=== PATIENT | male | born 1955 | race African-American/Black ===

== ENCOUNTER 2023-09-21 16:09 | Outpatient (AMB) | payer MEDICARE, MEDICAID, SELFPAY ==
--- NOTE | 2023-09-21 16:11 | HO.NEPHOV_ITS ---
HPI HPI Comments History of Present Illness Details 67-year-old man with a history of hypert ension and CKD he is here for follow-up. He has history of mild hypercalcemia which has resolved. Today he has no new complaints. No polyuria polydipsia. No urinary symptoms PFSH Social History (Updated 09/21/23 @ 16:15 by Carrie Newton) Alcohol intake: never Patient Tobacco Use Status: Never used Tobacco Vital Signs 09/21/23 16:13 Height 5 ft 8 in Weight 172 lb BMI 26.1 BP 120/70 Blood Pressure Location Lt brachial Position Sitting Pulse 82 Pulse Source Pulse Oximeter Pulse Oximetry (%) 92 Oxygen Delivery Method Room Air Physical Exam Vital Signs: Last Vital Signs Pulse 82 09/21/23 16:13 BP 120/70 09/21/23 16:13 Pulse Ox 92 09/21/23 16:13 Oxygen Delivery Method Room Air 09/21/23 16:13 BMI result Body Mass Index 26.1 Const General: comfortable; No acute distress Orientation/consciousness: patient oriented x3 Eyes General: appearance normal, both eyes and all related structures Visual Chino: normal visual chino by confrontation Neck Neck: Yes supple and Yes no JVD Resp Effort & Inspection: normal respiratory effort and respiratory effort not decreased Auscultation: rhonchi Cardio Palpation: no palpable S3 and no palpable S4 Heart sounds: no rubs GI Inspection: Yes normal to inspection Palpation (GI): Soft to palpation Percussion: Yes normal to percussion Auscultation: normal bowel sounds General: Yes no CVA tenderness Back/Spine/Pelvis Back: no CVA tenderness Skin General skin exam: no petechiae and no purpura Neuro General: patient oriented x3 and no focal motor deficits Extrem General: No clubbing and No edema Results Reviewed Results Reviewed: Labs from February 2023 was reviewed. Serum creatinine 1.4. Assessment & Plan Assessment & Plan (1) CKD (chronic kidney disease) stage 3, GFR 30-59 ml/min: Code(s): N18.30 - Chronic kidney disease, stage 3 unspecified Plan: Renal function at baseline Will repeat Avoid nephrotoxins (2) HTN (hypertension): Code(s): I10 - Essential (primary) hypertension Plan: BP acceptable Low salt diet (3) Hypercalcemia: Code(s): E83.52 - Hypercalcemia Plan: recheck today Orders: Orders Electrolytes Today N18.30 - Chronic kidney disease, stage 3 unspecified Blood Urea Nitrogen Today N18.30 - Chronic kidney disease, stage 3 unspecified Creatinine Today N18.30 - Chronic kidney disease, stage 3 unspecified Calcium Today N18.30 - Chronic kidney disease, stage 3 unspecified Coding Level of Care Code Est Pt Level 3 (95632) Diagnoses CKD (chronic kidney disease) stage 3, GFR 30-59 ml/min N18.30 HTN (hypertension) I10 Hypercalcemia E83.52
[2023-09-21 16:13] VITALS: BP 120/70; PULSE 82; O2SAT 92; BMI 26.1
== END 2023-09-21 16:26 | disposition home or self-care (01) ==
PROVIDERS: Visit Provider Internal Medicine Hypertension Specialist
DX: I12.9 Hypertensive chronic kidney disease with stage 1 through stage 4 chronic kidney disease, or unspecified chronic kidney disease (principal); N18.30 Chronic kidney disease, stage 3 unspecified; E83.52 Hypercalcemia
CPT/HCPCS: 99213

== ENCOUNTER → 2023-09-21 16:09 | Outpatient (BNVA) | payer MEDICARE, MEDICAID, SELFPAY | PROVIDERS: Visit Provider Internal Medicine Hypertension Specialist | DX: I12.9 Hypertensive chronic kidney disease with stage 1 through stage 4 chronic kidney disease, or unspecified chronic kidney disease (principal); N18.30 Chronic kidney disease, stage 3 unspecified; E83.52 Hypercalcemia | CPT/HCPCS: 99212 ==

== ENCOUNTER 2024-03-21 10:51 | Outpatient (AMB) | payer MEDICARE, MEDICAID, SELFPAY ==
[2024-03-21 10:55] VITALS: BP 128/70; PULSE 84; O2SAT 95; BMI 25.5
--- NOTE | 2024-03-21 10:55 | HO.NEPHOV ---
Vital Signs 03/21/24 10:55 Height 5 ft 8 in Weight 168 lb BMI 25.5 BP 128/70 Blood Pressure Location Lt brachial Position Sitting Pulse 84 Pulse Source Pulse Oximeter Pulse Oximetry (%) 95 Oxygen Delivery Method Room Air Intake Visit Reasons: 6M follow up/ LVM An/Sqq 89(V)15 Sonar System Journeyman Required: No Accompanied by: Self / Same As Patient Allergies No Known Allergies Allergy (Verified 03/21/24 10:56) Medication List - Last Reconciled 03/21/24 by Garret Cantu MD amlodipine 10 mg PO DAILY atorvastatin 40 mg PO DAILY lamotrigine 200 mg PO BID tamsulosin 0.4 mg PO DAILY HPI Comments Details: 67-year-old man with a history of hypertension and CKD he is here for follow-up. He has history of mild hypercalcemia which has resolved. Today he has no new complaints. No polyuria polydipsia. No urinary symptoms PFSH Social History Alcohol intake: never Patient Tobacco Use Status: Never used Tobacco Physical Exam Vital Signs: Last Vital Signs Pulse 84 03/21/24 10:55 BP 128/70 03/21/24 10:55 Pulse Ox 95 03/21/24 10:55 Oxygen Delivery Method Room Air 03/21/24 10:55 BMI result Body Mass Index 25.5 Const General: comfortable; No acute distress Orientation/consciousness: patient oriented x3 Eyes General: appearance normal, both eyes and all related structures Visual Chino: normal visual chino by confrontation Neck Neck: Yes supple and Yes no JVD Resp Effort & Inspection: normal respiratory effort and respiratory effort not decreased Auscultation: rhonchi Cardio Palpation: no palpable S3 and no palpable S4 Heart sounds: no rubs GI Inspection: Yes normal to inspection Palpation (GI): Soft to palpation Percussion: Yes normal to percussion Auscultation: normal bowel sounds General: Yes no CVA tenderness Back/Spine/Pelvis Back: no CVA tenderness Skin General skin exam: no petechiae and no purpura Neuro General: patient oriented x3 and no focal motor deficits Extrem General: No clubbing and No edema Results Reviewed Results Reviewed: Pending Nephrology Results: No Data to Display Assessment & Plan Assessment & Plan (1) CKD (chronic kidney disease) stage 3, GFR 30-59 ml/min: Code(s): N18.30 - Chronic kidney disease, stage 3 unspecified Category: Medical Plan: Renal function at baseline Cr 1.37 Avoid nephrotoxins (2) HTN (hypertension): Code(s): I10 - Essential (primary) hypertension Category: Medical Plan: BP acceptable Low salt diet (3) Hypercalcemia: Code(s): E83.52 - Hypercalcemia Category: Medical Plan: Delroy 10.0 Vit D 28 Orders: Orders Complete Blood Count Auto Diff 6 Months I10 - Essential (primary) hypertension, N18.30 - Chronic kidney disease, stage 3 unspecified Comprehensive Met. Panel 6 Months I10 - Essential (primary) hypertension, N18.30 - Chronic kidney disease, stage 3 unspecified, N18.9 - Chronic kidney disease, unspecified Parathyroid Hormone Intact 6 Months I10 - Essential (primary) hypertension, N18.30 - Chronic kidney disease, stage 3 unspecified UA and rflx microscopic 6 Months I10 - Essential (primary) hypertension, N18.30 - Chronic kidney disease, stage 3 unspecified Coding Level of Care Code Est Pt Level 4 (94530) Diagnoses CKD (chronic kidney disease) stage 3, GFR 30-59 ml/min N18.30 HTN (hypertension) I10 Hypercalcemia E83.52
== END 2024-03-21 11:10 | disposition home or self-care (01) ==
PROVIDERS: PCP Nurse Practitioner Family; Visit Provider Internal Medicine Hypertension Specialist
DX: N18.30 Chronic kidney disease, stage 3 unspecified (principal); I10 Essential (primary) hypertension; E83.52 Hypercalcemia
CPT/HCPCS: 99214

== ENCOUNTER → 2024-03-21 10:51 | Outpatient (BNVA) | payer MEDICAID, SELFPAY | PROVIDERS: Visit Provider Internal Medicine Hypertension Specialist | DX: I12.9 Hypertensive chronic kidney disease with stage 1 through stage 4 chronic kidney disease, or unspecified chronic kidney disease (principal); N18.30 Chronic kidney disease, stage 3 unspecified; E83.52 Hypercalcemia | CPT/HCPCS: 99212 ==

== ENCOUNTER 2024-08-15 11:09 | Outpatient (AMB) | payer MEDICARE, MEDICAID, SELFPAY ==
--- NOTE | 2024-08-15 11:11 | HO.NEPHOV ---
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 He has history of mild hypercalcemia which has resolved. Today he has no new complaints. No polyuria polydipsia. No urinary symptoms PFSH Social History Alcohol intake: never Patient Tobacco Use Status: Never used Tobacco Physical Exam Vital Signs: Last Vital Signs Pulse 95 08/15/24 11:12 BP 110/64 08/15/24 11:12 Pulse Ox 96 08/15/24 11:12 Oxygen Delivery Method Room Air 08/15/24 11:12 BMI result Body Mass Index 25.1 Const General: comfortable; No acute distress Orientation/consciousness: patient oriented x3 Eyes General: appearance normal, both eyes and all related structures Visual Chino: normal visual chino by confrontation Neck Neck: Yes supple and Yes no JVD Resp Effort & Inspection: normal respiratory effort and respiratory effort not decreased Auscultation: rhonchi Cardio Palpation: no palpable S3 and no palpable S4 Heart sounds: no rubs GI Inspection: Yes normal to inspection Palpation (GI): Soft to palpation Percussion: Yes normal to percussion Auscultation: normal bowel sounds General: Yes no CVA tenderness Back/Spine/Pelvis Back: no CVA tenderness Skin General skin exam: no petechiae and no purpura Neuro General: patient oriented x3 and no focal motor deficits Extrem General: No clubbing and No edema Results Reviewed Nephrology Results: No Data to Display Assessment & Plan Assessment & Plan (1) CKD (chronic kidney disease) stage 3, GFR 30-59 ml/min: Code(s): N18.30 - Chronic kidney disease, stage 3 unspecified Category: Medical Plan: Renal function at baseline Cr 1.37 Avoid nephrotoxins (2) HTN (hypertension): Code(s): I10 - Essential (primary) hypertension Category: Medical Plan: BP acceptable Low salt diet (3) Hypercalcemia: Code(s): E83.52 - Hypercalcemia Category: Medical Plan: Delroy 10.0 Vit D 28 Orders: Orders Complete Blood Count Auto Diff Today E83.52 - Hypercalcemia, I10 - Essential (primary) hypertension, N18.30 - Chronic kidney disease, stage 3 unspecified Total Protein Urine Random Today E83.52 - Hypercalcemia, I10 - Essential (primary) hypertension, N18.30 - Chronic kidney disease, stage 3 unspecified UA and rflx microscopic Today E83.52 - Hypercalcemia, I10 - Essential (primary) hypertension, N18.30 - Chronic kidney disease, stage 3 unspecified Creatinine Urine Today E83.52 - Hypercalcemia, I10 - Essential (primary) hypertension, N18.30 - Chronic kidney disease, stage 3 unspecified Parathyroid Hormone Intact Today N18.30 - Chronic kidney disease, stage 3 unspecified Basic Metabolic Panel Today E83.52 - Hypercalcemia, I10 - Essential (primary) hypertension, N18.30 - Chronic kidney disease, stage 3 unspecified Coding Level of Care Code Est Pt Level 4 (63075) Diagnoses CKD (chronic kidney disease) stage 3, GFR 30-59 ml/min N18.30 HTN (hypertension) I10 Hypercalcemia E83.52
[2024-08-15 11:12] VITALS: BP 110/64; PULSE 95; O2SAT 96; BMI 25.1
== END 2024-08-15 11:24 | disposition home or self-care (01) ==
PROVIDERS: PCP Nurse Practitioner Family; Visit Provider Internal Medicine Hypertension Specialist
DX: N18.30 Chronic kidney disease, stage 3 unspecified (principal); I10 Essential (primary) hypertension; E83.52 Hypercalcemia
CPT/HCPCS: 99214

== ENCOUNTER → 2024-08-15 11:09 | Outpatient (BNVA) | payer MEDICAID, SELFPAY | PROVIDERS: PCP Nurse Practitioner Family; Visit Provider Internal Medicine Hypertension Specialist | DX: I12.9 Hypertensive chronic kidney disease with stage 1 through stage 4 chronic kidney disease, or unspecified chronic kidney disease (principal); N18.30 Chronic kidney disease, stage 3 unspecified; E83.52 Hypercalcemia | CPT/HCPCS: 99212 ==

== ENCOUNTER 2025-02-13 09:57 | Outpatient (AMB) | payer MEDICAID, SELFPAY ==
[2025-02-13 09:57] VITALS: BP 110/70; PULSE 111; O2SAT 97; BMI 25.0
--- NOTE | 2025-02-13 09:57 | HO.NEPHOV ---
Vital Signs 02/13/25 09:57 Height 5 ft 8 in Weight 164 lb 6 oz BMI 25.0 BP 110/70 Blood Pressure Location Lt brachial Position Sitting Pulse 111 H Pulse Source Pulse Oximeter Pulse Oximetry (%) 97 Oxygen Delivery Method Room Air Intake Visit Reasons: 6mon follow up/ LVM Allergies No Known Allergies Allergy (Verified 02/13/25 09:59) Medication List - Last Reconciled 02/13/25 by Garret Cantu MD amlodipine 10 mg PO DAILY atorvastatin 40 mg PO DAILY lamotrigine 200 mg PO BID tamsulosin 0.4 mg PO DAILY HPI Comments Details: 69-year-old man with a history of hypertension and CKD he is here for follow-up. He has history of mild hypercalcemia which has resolved. Today he has no new complaints. No polyuria polydipsia. No urinary symptoms PFSH Social History Alcohol intake: never Patient Tobacco Use Status: Never used Tobacco Physical Exam Vital Signs: Last Vital Signs Pulse 111 H 02/13/25 09:57 BP 110/70 02/13/25 09:57 Pulse Ox 97 02/13/25 09:57 Oxygen Delivery Method Room Air 02/13/25 09:57 BMI result Body Mass Index 25.0 Const General: comfortable; No acute distress Orientation/consciousness: patient oriented x3 Eyes General: appearance normal, both eyes and all related structures Visual Chino: normal visual chino by confrontation Neck Neck: Yes supple and Yes no JVD Resp Effort & Inspection: normal respiratory effort and respiratory effort not decreased Cardio Palpation: no palpable S3 and no palpable S4 Heart sounds: no rubs GI Inspection: Yes normal to inspection Palpation (GI): Soft to palpation Percussion: Yes normal to percussion Auscultation: normal bowel sounds General: Yes no CVA tenderness Back/Spine/Pelvis Back: no CVA tenderness Skin General skin exam: no petechiae and no purpura Neuro General: patient oriented x3 and no focal motor deficits Extrem General: No clubbing and No edema Results Reviewed Results Reviewed: 02/07/25 Cr No proteinuria Nephrology Results: No Data to Display Assessment & Plan Assessment & Plan (1) CKD (chronic kidney disease) stage 3, GFR 30-59 ml/min: Code(s): N18.30 - Chronic kidney disease, stage 3 unspecified Category: Medical Plan: Renal function at baseline Cr 1.4 Avoid nephrotoxins (2) HTN (hypertension): Code(s): I10 - Essential (primary) hypertension Category: Medical Plan: BP acceptable Low salt diet (3) Hypercalcemia: Code(s): E83.52 - Hypercalcemia Category: Medical Plan: Delroy 10.0 Vit D 28 Repeat Ca 10.1 with PTH of 68pg/ml Orders: Orders Basic Metabolic Panel 6 Months N18.30 - Chronic kidney disease, stage 3 unspecified Coding Level of Care Code Est Pt Level 4 (92435) Diagnoses CKD (chronic kidney disease) stage 3, GFR 30-59 ml/min N18.30 HTN (hypertension) I10 Hypercalcemia E83.52
--- OUTSIDE RECORDS SUMMARY | 2025-02-13 11:24 | XMS_ITS | Encounter Summary ---
Author Organization [facility] Address [address] [place] [address] Care Team Providers Care Rn Transitional Care Name Role Phone Physician, Pcp Unknown Primary Care Provider Elizabeth vailable Encounter Details Date Type Department Care Team (Late st Contact Info) Description 02/06/2025 Lab Requisition [facility] - Main Lab [address] [facility] [place] [address] Marcela Wilder, CHEMO [address] [place] [address] Chronic kidney disease, stage 3 unspecified (CMS/HCC V24, CMS/HCC V28) Social History Tobacco Use Types Packs/Day Years Used Date Smoking Tobacco: Never Assessed Sex and Gender Information Value Date Recorded Sex Assigned at Not on file Legal Sex Male 6:44 AM EST Gender Identity Not on file Sexual Orientation Not on file documented as of this encounter Plan of Treatment Not on file documented as of this encounter Procedures Procedure Name Priority Date/Time Associated Diagnosis Comments NAVA URINE CULTURE TUBE Routine 02/06/2025 9:40 AM EDT Chronic kidney disease, stage 3 unspecified (CMS/HCC V24, CMS/HCC V28) CREATININE, URINE, RANDOM Routine 02/06/2025 9:40 AM EDT Chronic kidney disease, stage 3 unspecified (CMS/HCC V24, CMS/HCC V28) documented in this encounter Results * Nava urine culture tube (02/06/2025 9:40 AM EDT) Extra Tube Hold for add-ons. 02/06/2025 8:01 PM EDT [facility] Comment:Auto resulted. Urine Urine specimen obtained by clean catch procedure / Unknown 02/06/2025 9:40 AM EDT 02/06/2025 6:15 PM EDT Eddieliza Casionan [facility] URINE ORDERABLES Final Result Performing Organization Address City/[facility]/ZIP Co de Phone Number [facility] [address] [place] [address], [place] [phone] * Creatinine, urine, random (02/06/2025 9:40 AM EDT) Creatinine, Urine 79.0 mg/dL LAB CHEMISTRY METHOD 02/06/2025 9:57 PM EDT [facility] Urine Urine specimen obtained by clean catch procedure / Unknown 02/06/2025 9:40 AM EDT 02/06/2025 6:15 PM EDT Eddisaúlza Santhoshionan [facility] URINE ORDERABLES Final Result [facility] [address] [place] [address], [place] [phone] documented in this encounter Visit Diagnoses Diagnosis Chronic kidney disease, stage 3 unspecified (CMS/HCC V24, CMS/HCC V28) documented in this encounter Care Teams Rn Transitional Care Relationship Specialty Start Date End Date Physician, Pcp Unknown PCP - General 02/06/25 documented as of this encounter
--- OUTSIDE RECORDS SUMMARY | 2025-02-13 11:24 | XMS_ITS ---
Author Organization [facility] Address [address] [place] [phone] Care Team Providers Care Date Night Caregiver Name Role Phone Marcela Wilder Primary Care Provider [facility], Nursing Unavailable [phone] Allergies No Known Allergies REASON FOR VISIT Office; Lab draw Medications Medication SIG (Take, Route, Fr equency, Duration) Notes Start Date End Date Status lamoTRIgine 200 mg 1 tab(s) orally 2 ti mes a day for 90 days Active Flomax 0.4 mg 1 cap(s) orally once a day before bedtime Active amLODIPine 10 mg 1 tab(s) orally once a day for 90 days Active atorvastatin 40 mg 1 tab(s) orally once a day (at bedtime) for 90 days Active Social History Tobacco Use: Social History Observation Description Date Details (start date - stop date) Never Smoker NA - NA Sex Assigned At : Social History Observation Description Sex Assigned At Male Tobacco Use Assessment MU Question Answer Notes What is your current smoking status? nonsmoker Vital Signs Temperature 97.0 degrees Fahrenheit 02/07/20 25 Height 68 in 02/06/2025 Encounters Encounter Location Date Provider Diagnosis [address] [phone] 02/06/2025 Nursing [facility] Encounter for screening, unspecified Z13.9 Assessments Encounter Date Diagnosis (ICD Code) Assessment Notes Treatment Notes Treatment Clinical Notes 02/06/2025 Encounter for screening, unspecified (ICD-10 - Z13.9) Lab work drawn as ordered, per protocol using aseptic technique. Client will be notified of all lab values within two weeks, Client agrees with plan, allowed to clarify questions about plan. Plan Of Treatment Treatment Notes Assessment Notes Encounter for screening, unspecified Lab work drawn as ordered, per protocol using aseptic technique. Client will be notified of all lab values within two weeks, Client agrees with plan, allowed to clarify questions about plan. Next Appt Details Follow Up: prn, Reason: Provider Name:Nursing [facility], 02/18/2025 01:00:00 PM, [address] [place] [address], [phone], Progress Notes * Lilliana MEDINAOB:1955 (69 yo M)Acc No.[id number]:02/06/2025 Progress Notes Patient:?Rafiq MEDINA Provider:?Provider [facility] :1955???Age:69 Y???Sex:Male Real e:02/06/2025 Address:[address] [place] [address], [address] Pcp:Marcela Wilder Subjective: * Chief Complaints: * ???1. Office; Lab draw. * HPI: ???General:? Pt. reports to clinic for lab draw for kidney provider's orders, pt. denies any concerns at time of visit. * ROS:?GENERAL:?Constitutional?denies,?fevers, chills.?Respiratory?denies,?shortness of breath, wheezing.?Cardiovascular?denies,?chest pain/pressure, syncope.? * Hospitalization/Major Diagno stic Procedure:?seizures-last time more than 10 years , [facility] seizure 10/2014, [facility], seizures 11/2014. * Family History:?Mother: dece ased 52 yrs, Lung Cancer.?Father: .?Siblings: 2 brothers 1 OD, 1 NC.?2 brother(s) . 2 son(s) , 1 daughter(s) . .? 3 children- Poor historian,. * Social History:?Housing/vinayak ng arrangements: 07/2024: Resides in the same apartment12/2022 [id number]/17/20 Continues in the same apt.01/03/19: Continues in the same apt.01/04/18: Continues in the same appt.05/11/[address].07/22/[address] since may 2015release from [facility] 01/2014 staying at Since//doubled-up with family, trying to find own place,kcrozina, Continues to live w/friends of his son @ [address] [facility].Sumaya Ott RN 03/15/2016 1:12:48 PM > Spring .. [facility] Screening?Entered Date?08/16/2024,?How is this screening being conducted today??In-person,?What is your housing situation today??I have housing,?Think about the place you live. Do you have problems with any of the following? (Check all that apply)?None of the above,?Within the past 12 months, you worried that your food would run out before you got money to buy more?Never true,?Within the past 12 months, the food you bought just didn't last and you didn't have enough money to get more?Never true,?In the past 12 months, has lack of transportation kept you from medical appointments, meetings, work or from getting things needed for daily living? (Check all that apply)?No,?In the past 12 months has the [employer], gas, oil, or water company threatened to shut off services in your home??No,?Do you want help finding or keeping work or a job??I do not need or want help.?Tobacco Use Assessment MU?Annual Tobacco assessment completed?08/16/2024 Denies,?Tobacco assessment completed?08/16/2024,?What is your current smoking status??nonsmoker.?Drug use: denies issue with drugs?Date of history:?08/16/2024 Denies.?Opiate Use Hx?Ever taken opiates?No 07/2024.?Alcohol Use: never, 07/2024 Denies12/2022 denies03/2021 Denies07/10/20 Denies.01/03/19: Denies01/04/18: Denies05/11/17 Denies.06/2015 Denies Hx ETOH use.Sumaya Ott , KELLEY 03/15/2016 1:13:25 PM >denies. Sexual Orientation?Heterosexual?08/16/2024.?Sexual Health history?Sexual History completed on:?08/16/2024 Denies,?Identifies as currently having sexual contact?No,?Number of lifetime sexual partners?greater than 10. Mental Health: 07/2024: Denies03/2021 [id number]: Declines referral to care. + PHQ-9.01/04/18: Not engaged in care at this time.05/11/17 Not seeing anyone no mental health issues.No hx of mental health issues.. School?Last grade completed?9,?GED Obtained??No working on it at [employer] but got stuck - math hard,?Reading/Writing competent?Literate.?Work Hx: 03/2021 Denies03/20/2015: most recent employment: drove forklift, stocked trucks. Income: prior to jial had SSI For NerissaRoxy 03/20/2015 3:40:10 PM > SSI $1053/mo. Legal issues/Incarcerations: 10 years at [employer] [place]. on parole for life. level 3 sex offender.03/20/2015 > most recent incarceration: 01/2015. PAULO Schuster; on probation for a while.. PCP/last visit: 12/2022 [facility]: [facility]. Transportation: 12/2022 Pt is comfortable navigating bus system, Pt is able to walk most places. Marital Status: Single. Next of Kin/Emerg. Contact & Community Supports: 01/03/19: Brother Yon Medina. Family relationships/conflicts: family in the [facility], would like to stay in area.. Children: 3 kdis, older. Baptist: [employer]. TBI screening/Head injury Hx: 01/03/19:Patient can not recall any times in which he/she experienced sig blow to the head (fall, blast, collision). * Medications:?Taking atorvast atin 40 mg tablet 1 tab(s) orally once a day (at bedtime) , Taking Flomax 0.4 mg capsule 1 cap(s) orally once a day before bedtime , Taking amLODIPine 10 mg tablet 1 tab(s) orally once a day , Taking lamoTRIgine 200 mg tablet 1 tab(s) orally 2 times a day , Medication List reviewed and reconciled with the patient Objective: * Vitals:?Ht: 68, Temp:97.0. Assessment: * Assessment: 1.?Encounter for screening, unspecified - Z13.9 (Primary)??? Plan: * Treatment: * Procedure Codes:?51554 VENIP UNCT, ROUTINE*, 32368 SPECIMEN HANDLING * Follow Up:?prn * Images: Billing Information: * Visit Code:? * Procedure Codes:? 36989 VENIPUNCT, ROUTINE*. 28038 SPECIMEN HANDLING. * Sign off status: Completed true * Provider:?Provider [facility] Date:?02/06/2025 Generated for Derrick camacho/Ilir/Zarinaitting on:?02/13/2025 11:24 AM EDT
--- OUTSIDE RECORDS SUMMARY | 2025-02-13 11:24 | XMS_ITS ---
Author Organization [facility] Address [address] [place] [phone] Care Team Providers Care Solar Installation Manager Name Role Phone Marcela Wilder Primary Care Provider [facility], Nursing Unavailable [phone] REASON FOR VISIT Hep B & A #2 Social History Sex Assigned At : Social History Observation Description Sex Assigned At Male Encounters Encounter Location Date Provider Diagnosis [address] [phone] 09/17/2024 [facility] Plan Of Treatment Next Appt Details Provider Name:[facility], 02/18/2025 01:00:00 PM, [address] [place] [address], [phone], Progress Notes * Lilliana MEDINAOB:1955 (69 yo M)Acc No.[id number]:09/17/2024 Immunization Visit Patient:?Rafiq MEDINA Provider:?Provider [facility] :1955???Age:68 Y???Sex:Male Real e:09/17/2024 Address:[address] [place] [address], [address] [place] [id number] Pcp:Marcela Wilder Subjective: * Chief Complaints: * ???1. Hep B & A #2. * Medical History:? Objective: * Vitals:? Assessment: Plan: * Treatment: * Images: Billing Information: * Visit Code:? * Procedure Codes:? * Electronic signature of [facility] on 02/13/2025 at 11:24 AM EDT Sign off status: Pending * Provider:?Provider [facility] Date:?09/17/2024 Generated for Derrick camacho/Ilir/Kathleen on:?02/13/2025 11:24 AM EDT
--- OUTSIDE RECORDS SUMMARY | 2025-02-13 11:24 | XMS_ITS | Encounter Summary ---
Author Organization [facility] Address [address] [place] [address] Care Team Providers Care Director Process Name Role Phone Physician, Pcp Unknown Primary Care Provider Elizabeth vailable Encounter Details Date Type Department Care Team (Late st Contact Info) Description 02/06/2025 Lab Requisition [facility] - Main Lab [address] [facility] [place] [address] Garret Cantu MD [address] [place] [address] [address] [place] [address] Essential (primary) hypertension; Hypercalcemia; Chronic kidney disease, stage 3 unspecified (CMS/HCC [...] Procedure Name Priority Date/Time Associated Diagnosis Comments URINALYSIS WITH REFLEX MICROSCOPIC Routine 02/06/2025 9:40 AM EDT Essential (primary) hypertension Hypercalcemia Chronic kidney disease, stage 3 unspecified (CMS/HCC V24, CMS/HCC V28) URINALYSIS WITH REFLEX MICROSCOPIC Routine 02/06/2025 9:40 AM EDT Essential (primary) hypertension Hypercalcemia Chronic kidney disease, stage 3 unspecified (CMS/HCC V24, CMS/HCC V28) PROTEIN AND CREATININE WITH RATIO, URINE Routine 02/06/2025 9:40 AM EDT Essential (primary) hypertension Hypercalcemia Chronic kidney disease, stage 3 unspecified (CMS/HCC V24, CMS/HCC V28) COMPLETE BLOOD COUNT Routine 02/06/2025 9:40 AM EDT Essential (primary) hypertension Hypercalcemia Chronic kidney disease, stage 3 unspecified ([facility] [place]24, [facility] V28) PARATHYROID HORMONE INTACT Routine 02/06/2025 9:40 AM EDT Essential (primary) hypertension Hypercalcemia Chronic kidney disease, stage 3 unspecified ([facility] V24, [facility] V28) BASIC METABOLIC PANEL Routine 02/06/2025 9:40 AM EDT Essential (primary) hypertension Hypercalcemia Chronic kidney disease, stage 3 unspecified ([facility] V24, [facility] V28) documented in this encounter Results * Urinalysis with reflex microscopic (02/06/2025 9:40 AM EDT) Specific [place] Urine 1.012 1.003 - 1.030 LAB URINALYSIS - AUTOMATED METHOD 02/06/2025 7:02 PM [facility] pH, Urine 6.5 5.0 - 8.0 pH LAB URINALYSIS - AUTOMATED METHOD 02/06/2025 7:02 PM [facility] Leukocytes, Urine Negative Negative LAB URINALYSIS - AUTOMATED METHOD 02/06/2025 7:02 PM [facility] Nitrite, Urine Negative Negative LAB URINALYSIS - AUTOMATED METHOD 02/06/2025 7:02 PM [facility] Protein, Urine Negative <=Trace mg/dL LAB URINALYSIS - AUTOMATED METHOD 02/06/2025 7:02 PM [facility] Glucose, Urine Negative Negative mg/dL LAB URINALYSIS - AUTOMATED METHOD 02/06/2025 7:02 PM [facility] Ketones, Urine Negative Negative mg/dL LAB URINALYSIS - AUTOMATED METHOD 02/06/2025 7:02 PM [facility] Urobilinogen, Urine 0.2 0.2 - 1.0 mg/dL LAB URINALYSIS - AUTOMATED METHOD 02/06/2025 7:02 PM [facility] Bilirubin, Urine Negative Negative LAB URINALYSIS - AUTOMATED METHOD 02/06/2025 7:02 PM [facility] Blood, Urine Negative Negative LAB URINALYSIS - AUTOMATED METHOD 02/06/2025 7:02 PM [facility] Urine Urine specimen obtained by clean catch procedure / Unknown 02/06/2025 9:40 AM EDT 02/06/2025 6:08 PM EDT Garret Cantu MD LAB URINE ORDERABL ES Final Result [facility] [address] [place] [address], * (ABNORMAL) Basic metabolic panel (02/06/2025 9:40 AM EDT) Sodium 139 133 - 145 mmol/L LAB CHEMISTRY METHOD 02/06/2025 7:01 PM [facility] Potassium 4.1 3.5 - 5.5 mmol/L LAB CHEMISTRY METHOD 02/06/2025 7:01 PM [facility] Chloride 105 96 - 110 mmol/L LAB CHEMISTRY METHOD 02/06/2025 7:01 PM [facility] CO2 27 21 - 32 mmol/L LAB CHEMISTRY METHOD 02/06/2025 7:01 PM [facility] Anion Gap 7 3 - 11 LAB CHEMISTRY METHOD 02/06/2025 7:01 PM [facility] Glucose 95 70 - 100 mg/dL LAB CHEMISTRY METHOD 02/06/2025 7:01 PM [facility] BUN 17 5 - 25 mg/dL LAB CHEMISTRY METHOD 02/06/2025 7:01 PM [facility] Creatinine 1.44(H) 0.70 - 1.30 mg/dL LAB CHEMISTRY METHOD 02/06/2025 7:01 PM EDT [facility] eGFR 53(L) >=60 mL/min/1. 73m2 LAB CHEMISTRY METHOD 02/06/2025 7:01 PM EDT [facility] Comment:Calculation based on the??Chronic Kidney Disease Epidemiology Collaboration (CKD-EPI) equation refit??without adjustment for race. BUN/Creatinine Ratio 11.8 LAB CHEMISTRY METHOD 02/06/2025 7:01 PM EDT [facility] Calcium 10.1 8.5 - 10.5 mg/dL LAB CHEMISTRY METHOD 02/06/2025 7:01 PM EDT [facility] Blood Venous blood specimen / Unknown 02/06/2025 9:40 AM EDT 02/06/2025 6:08 PM EDT us Garret Cantu MD LAB BLOOD ORDERABL ES Final Result [facility] [address] [place] [address], [place] [phone] * Parathyroid hormone intact (02/06/2025 9:40 AM EDT) PTH 68.4 18.5 - 88.0 pcg/mL LAB CHEMISTRY METHOD 02/06/2025 7:31 PM EDT [facility] Blood Venous blood specimen / Unknown 02/06/2025 9:40 AM EDT 02/06/2025 6:08 PM EDT us Garret Cantu MD LAB BLOOD ORDERABL ES Final Result [facility] [address] [place] [address], [place] [phone] * Protein and creatinine with ratio, urine (02/06/2025 9:40 AM EDT) Pathologist [facility] Protein, Urine 7 mg/dL LAB CHEMISTRY METHOD 02/06/2025 9:56 PM EDT [facility] Prot/Creat, Ur 0.09 <=0.20 mg/mg creat LAB CHEMISTRY METHOD 02/06/2025 9:56 PM EDT [facility] Creatinine, Urine 80.0 mg/dL LAB CHEMISTRY METHOD 02/06/2025 9:56 PM EDT [facility] Urine Urine specimen obtained by clean catch procedure / Unknown 02/06/2025 9:40 AM EDT 02/06/2025 6:08 PM EDT Garret Cantu MD LAB URINE ORDERABL ES Final Result [facility] [address] [place] [address], * Complete blood count (02/06/2025 9:40 AM EDT) [facility] WBC 6.6 4.8 - 10.8 K/mcL LAB HEMETOLOGY METHOD 02/06/2025 6:46 PM EDT [facility] RBC 4.70 4.50 - 5.50 M/mcL LAB HEMETOLOGY METHOD 02/06/2025 6:46 PM EDT [facility] Hemoglobin 14.0 13.5 - 17.5 g/dL LAB HEMETOLOGY METHOD 02/06/2025 6:46 PM EDT [facility] Hematocrit 42.9 42.0 - 54.0 % LAB HEMETOLOGY METHOD 02/06/2025 6:46 PM EDT [facility] MCV 92.3 79.0 - 98.0 FL LAB HEMETOLOGY METHOD 02/06/2025 6:46 PM EDT [facility] MCH 30.1 27.0 - 32.0 pcg LAB HEMETOLOGY METHOD 02/06/2025 6:46 PM EDT [facility] MCHC 32.6 32.0 - 37.0 g/dL LAB HEMETOLOGY METHOD 02/06/2025 6:46 PM EDT [facility] RDW 13.3 11.0 - 15.0 % LAB HEMETOLOGY METHOD 02/06/2025 6:46 PM EDT [facility] Platelets 260 130 - 400 K/mcL LAB HEMETOLOGY METHOD 02/06/2025 6:46 PM EDT [facility] MPV 10.7 7.0 - 11.0 FL LAB HEMETOLOGY METHOD 02/06/2025 6:46 PM EDT [facility] NRBC 0.0 <1.0 % LAB HEMETOLOGY METHOD 02/06/2025 6:46 PM EDT [facility] NRBC Absolute 0.00 <0.10 K/mcL LAB HEMETOLOGY METHOD 02/06/2025 6:46 PM EDT [facility] Blood Venous blood specimen / Unknown 02/06/2025 9:40 AM EDT 02/06/2025 6:08 PM EDT Garret Cantu MD LAB BLOOD ORDERABL ES Final Result [facility] [address] [place] [address], documented in this encounter Visit Diagnoses Diagnosis Essential (primary) hypertension Unspecified essential hypertension Hypercalcemia Chronic kidney disease, stage 3 unspecified (CMS/HCC V24, CMS/HCC V28) documented in this encounter Care Teams Director Process Relationship Specialty Start Date End Date Physician, Pcp Unknown PCP - General 02/06/25 documented as of this encounter
--- OUTSIDE RECORDS SUMMARY | 2025-02-13 11:24 | XMS_ITS ---
Author Organization [facility] Address [address] [place] [id number] Care Team Providers Care Senior Network Engineer Name Role Phone Marcela Wilder Primary Care Provider REASON FOR VISIT lamictal rf Medications Medication SIG (Take, Route, Fr equency, Duration) Notes Start Date End Date Status lamoTRIgine 200 mg 1 tab(s) orally 2 ti mes a day for 90 days Active Social History Sex Assigned At : Social History Observation Description Sex Assigned At Male Encounters Encounter Location Date Provider Diagnosis [address] [id number] 01/10/2025 Marcela Wilder Plan Of Treatment Medication Medication Name Sig Start Date Stop Date Notes lamoTRIgine 200 mg 1 tab(s) orally 2 ti mes a day for 90 days Next Appt Details Provider Name:Nursing [facility], 02/18/2025 01:00:00 PM, [address] [place] [address], [phone], Progress Notes * Lilliana MEDINAOB:1955 (69 yo M)Acc No.[id number]:01/10/2025 Patient:?Rafiq MEDINA :1955???Age:69 Y???Sex:Male Address:[address] [place] [address], [address] [place], [address] * Refills? Refill lamoTRIgine tablet, 200 mg, orally, 180, 1 tab(s), 2 times a day, 90 days, Refills=1 * true * Date:? Generated for Derrick camacho/Ilir/Zarinaitting on:?02/13/2025 11:23 AM EDT
--- OUTSIDE RECORDS SUMMARY | 2025-02-13 11:25 | XMS_ITS | Clinical Summary ---
Author Organization [facility] Address [address] [place] [address] Phone Care Team Providers Care Reinforcing Steel Placer Name Role Phone Physician, Pcp Unknown Primary Care Provider Elizabeth vailable Encounters Date Type Department Care Team Description 02/06/2025 Lab Requisition [facility] [address] [place] [address] Marcela Wilder NP Chronic kidney disease, stage 3 unspecified (CMS/HCC V24, CMS/HCC V28) 02/06/2025 Lab Requisition [facility] [address] [place] [address] Garret Cantu MD Essential (primary) hypertension; Hypercalcemia; Chronic kidney disease, stage 3 unspecified ([facility] V24, CMS/HCC V28) from Last 3 Months Social History Tobacco Use Types Packs/Day Years Used Date Smoking Tobacco: Never Assessed Sex and Gender Information Value Date Recorded Sex Assigned at Not on file Legal Sex Male 6:44 AM EST Gender Identity Not on file Sexual Orientation Not on file Plan of Treatment Health Maintenance Due Date Last Done Comments DTaP,Tdap,and Td Vaccines (1 - Tdap) 1974 Pneumococcal Vaccine: 50+ Ye ars (1 of 1 - PCV) 2005 Zoster Vaccines (1 of 2) 2005 Abdominal Aortic Aneurysm (A AA) Screen 09/26/2022 Cholesterol Screening (Lipid Panel) 09/26/2022 Colorectal Cancer Screening: Colonoscopy 09/26/2022 Depression Screening 09/26/2022 Falls Risk Assessment 09/26/2022 Hepatitis C Screening 09/26/2022 Medicare Annual Wellness Visit 09/26/2022 Social Influencers of Health Screening 09/26/2022 COVID-19 Vaccine (1 - 4-2 5 season) 2024 Influenza Vaccine (Season Ended) 2025 Hypertension/CHF/CAD Annual BMP Blood Test 02/06/2026 02/06/2025 RSV Immunization Adult Patie nts (1 - 1-dose 75+ series) 2030 HIB Vaccines Aged Out No longer eligi ble based on patient's age to complete this topic HPV Vaccines Aged Out No longer eligi ble based on patient's age to complete this topic Hepatitis A Vaccines Aged Out No long er eligible based on patient's age to complete this topic Hepatitis B Vaccines Aged Out No long er eligible based on patient's age to complete this topic IPV Vaccines Aged Out No longer eligi ble based on patient's age to complete this topic MMR Vaccines Aged Out No longer eligi ble based on patient's age to complete this topic Meningococcal ACWY Vaccine Aged Out N o longer eligible based on patient's age to complete this topic Meningococcal B Vaccine Aged Out No l onger eligible based on patient's age to complete this topic RSV Immunization Patients Un leilani 20 months Aged Out No longer eligible b ased on patient's age to complete this topic Varicella Vaccines Aged Out No longer eligible based on patient's age to complete this topic Procedures Procedure Name Priority Date/Time Associated Diagnosis [...] stage 3 unspecified (CMS/HCC V24, CMS/HCC V28) BASIC METABOLIC PANEL Routine 02/06/2025 9:40 AM EDT Essential (primary) hypertension Hypercalcemia Chronic kidney disease, stage 3 unspecified (CMS/HCC V24, CMS/HCC V28) PARATHYROID HORMONE INTACT Routine 02/06/2025 9:40 AM EDT Essential (primary) hypertension Hypercalcemia Chronic kidney disease, stage 3 unspecified ([facility] V24, [facility] V28) URINALYSIS WITH REFLEX MICROSCOPIC Routine 02/06/2025 9:40 AM EDT Essential (primary) hypertension Hypercalcemia Chronic kidney disease, stage 3 unspecified ([facility] V24, [facility] V28) PROTEIN AND CREATININE WITH RATIO, URINE Routine 02/06/2025 9:40 AM EDT Essential (primary) hypertension Hypercalcemia Chronic kidney disease, stage 3 unspecified ([facility] V24, [facility] V28) COMPLETE BLOOD COUNT Routine 02/06/2025 9:40 AM EDT Essential (primary) hypertension Hypercalcemia Chronic kidney disease, stage 3 unspecified ([facility] V24, [facility] V28) from Last 3 Months Results * Urinalysis with reflex microscopic (02/06/2025 9:40 AM EDT) Specific [place] Urine 1.012 1.003 - 1.030 LAB URINALYSIS - AUTOMATED METHOD 02/06/2025 7:02 PM [facility] pH, Urine 6.5 5.0 - 8.0 pH LAB URINALYSIS - AUTOMATED METHOD 02/06/2025 7:02 PM [facility] Leukocytes, Urine Negative Negative LAB URINALYSIS - AUTOMATED METHOD 02/06/2025 7:02 PM [facility] Nitrite, Urine Negative Negative LAB URINALYSIS - AUTOMATED METHOD 02/06/2025 7:02 PM [facility] Protein, Urine Negative <=Trace mg/dL LAB URINALYSIS - AUTOMATED METHOD 02/06/2025 7:02 PM [facility] Glucose, Urine Negative Negative mg/dL LAB URINALYSIS - AUTOMATED METHOD 02/06/2025 7:02 PM [facility] Ketones, Urine Negative Negative mg/dL LAB URINALYSIS - AUTOMATED METHOD 02/06/2025 7:02 PM EDT [facility] Urobilinogen, Urine 0.2 0.2 - 1.0 mg/dL LAB URINALYSIS - AUTOMATED METHOD 02/06/2025 7:02 PM EDT [facility] Bilirubin, Urine Negative Negative LAB URINALYSIS - AUTOMATED METHOD 02/06/2025 7:02 PM EDT [facility] Blood, Urine Negative Negative LAB URINALYSIS - AUTOMATED METHOD 02/06/2025 7:02 PM EDT [facility] Urine Urine specimen obtained by clean catch procedure / Unknown 02/06/2025 9:40 AM EDT 02/06/2025 6:08 PM EDT Garret Cantu MD LAB URINE ORDERABL ES Final Result Performing Organization Address City/[facility]/ZIP Co de Phone Number [facility] [address] [place] [address], [place] [phone] * Nava urine culture tube (02/06/2025 9:40 AM EDT) Pathologist [facility] Extra Tube Hold for add-ons. 02/06/2025 8:01 PM EDT [facility] Comment:Auto resulted. Urine Urine specimen obtained by clean catch procedure / Unknown 02/06/2025 9:40 AM EDT 02/06/2025 6:15 PM EDT Marcela Wilder NP LAB URINE ORDERABLES Final Result Performing Organization Address [facility]/ZIP Co de Phone Number [facility] [address] [place] [address], [place] [phone] * Protein and creatinine with ratio, urine (02/06/2025 9:40 AM EDT) Protein, Urine 7 mg/dL LAB CHEMISTRY METHOD 02/06/2025 9:56 PM EDT [facility] Prot/Creat, Ur 0.09 <=0.20 mg/mg creat LAB CHEMISTRY METHOD 02/06/2025 9:56 PM EDT [facility] Creatinine, Urine 80.0 mg/dL LAB CHEMISTRY METHOD 02/06/2025 9:56 PM EDT [facility] Urine Urine specimen obtained by clean catch procedure / Unknown 02/06/2025 9:40 AM EDT 02/06/2025 6:08 PM EDT Garret Cantu MD LAB URINE ORDERABL ES Final Result Performing Organization Address [facility]/ZIP Co de Phone Number [facility] [address] [place] [address], [place] [phone] * Creatinine, urine, random (02/06/2025 9:40 AM EDT) Creatinine, Urine 79.0 mg/dL LAB CHEMISTRY METHOD 02/06/2025 9:57 PM EDT [facility] Urine Urine specimen obtained by clean catch procedure / Unknown 02/06/2025 9:40 AM EDT 02/06/2025 6:15 PM EDT Marcela Wilder NP LAB URINE ORDERABLES Final Result [facility] [address] [place] [address], [place] [phone] * Complete blood count (02/06/2025 9:40 AM EDT) WBC 6.6 4.8 - 10.8 K/[facility] LAB HEMETOLOGY METHOD 02/06/2025 6:46 PM EDT [facility] RBC 4.70 4.50 - 5.50 M/[facility] LAB HEMETOLOGY METHOD 02/06/2025 6:46 PM EDT [facility] Hemoglobin 14.0 13.5 - 17.5 g/dL LAB HEMETOLOGY METHOD 02/06/2025 6:46 PM EDT [facility] Hematocrit 42.9 42.0 - 54.0 % LAB HEMETOLOGY [facility] MCV 92.3 79.0 - 98.0 FL LAB HEMETOLOGY METHOD 02/06/2025 6:46 PM EDT [facility] MCH 30.1 27.0 - 32.0 pcg LAB HEMETOLOGY METHOD [facility] MCHC 32.6 32.0 - 37.0 g/dL LAB HEMETOLOGY METHOD 02/06/2025 6:46 PM [facility] RDW 13.3 11.0 - 15.0 % LAB HEMETOLOGY METHOD 02/06/2025 6:46 PM [facility] Platelets 260 130 - 400 K/mcL LAB HEMETOLOGY METHOD 02/06/2025 6:46 PM [facility] MPV 10.7 7.0 - 11.0 FL LAB HEMETOLOGY METHOD 02/06/2025 6:46 PM [facility] NRBC 0.0 <1.0 % LAB HEMETOLOGY METHOD 02/06/2025 6:46 PM [facility] NRBC Absolute 0.00 <0.10 K/mcL LAB HEMETOLOGY METHOD 02/06/2025 6:46 PM [facility] Blood Venous blood specimen / Unknown 02/06/2025 9:40 AM EDT 02/06/2025 6:08 PM EDT Garret Cantu MD LAB BLOOD ORDERABL ES Final Result Performing Organization Address City/[facility]/ZIP Co de Phone Number [facility] [address] [place] [address], [place] [phone] * Parathyroid hormone intact (02/06/2025 9:40 AM EDT) PTH 68.4 18.5 - 88.0 pcg/mL LAB CHEMISTRY METHOD 02/06/2025 7:31 PM EDT [facility] Blood Venous blood specimen / Unknown 02/06/2025 9:40 AM EDT 02/06/2025 6:08 PM EDT Garret Cantu MD LAB BLOOD ORDERABL ES Final Result Performing Organization Address [facility]/ZIP Co de Phone Number [facility] [address] [place] [address], [place] [phone] * (ABNORMAL) Basic metabolic panel (02/06/2025 9:40 AM EDT) Sodium 139 133 - 145 mmol/L LAB CHEMISTRY METHOD 02/06/2025 7:01 PM [facility] Potassium 4.1 3.5 - 5.5 mmol/L LAB CHEMISTRY METHOD 02/06/2025 7:01 PM [facility] Chloride 105 96 - 110 mmol/L LAB CHEMISTRY METHOD 02/06/2025 7:01 PM [facility] CO2 27 21 - 32 mmol/L LAB CHEMISTRY METHOD 02/06/2025 7:01 PM [facility] Anion Gap 7 3 - 11 LAB CHEMISTRY METHOD 02/06/2025 7:01 PM [facility] Glucose 95 70 - 100 mg/dL LAB CHEMISTRY METHOD 02/06/2025 7:01 PM [facility] BUN 17 5 - 25 mg/dL LAB CHEMISTRY METHOD 02/06/2025 7:01 PM EDT [facility] Creatinine 1.44(H) 0.70 - 1.30 mg/dL LAB CHEMISTRY METHOD 02/06/2025 7:01 PM EDT [facility] eGFR 53(L) >=60 mL/min/1. 73m2 LAB CHEMISTRY METHOD 02/06/2025 7:01 PM EDT [facility] Comment:Calculation based on the??Chronic Kidney Disease Epidemiology Collaboration (CKD-EPI) equation refit??without adjustment for race. BUN/Creatinine Ratio 11.8 LAB CHEMISTRY METHOD 02/06/2025 7:01 PM EDT [facility] Calcium 10.1 8.5 - 10.5 mg/dL LAB CHEMISTRY METHOD 02/06/2025 7:01 PM EDT [facility] Blood Venous blood specimen / Unknown 02/06/2025 9:40 AM EDT 02/06/2025 6:08 PM EDT Garret Cantu MD LAB BLOOD ORDERABL ES Final Result [facility] [address] [place] [address], from Last 3 Months Insurance MEDICARE MEDICAID - [place] Care Teams Reinforcing Steel Placer Relationship Specialty Start Date End Date Physician, Pcp Unknown PCP - General 02/06/25
--- OUTSIDE RECORDS SUMMARY | 2025-02-13 11:25 | XMS_ITS | Clinical Summary ---
Author Organization [facility] Address [address] [place] [address] Phone Care Team Providers Care Community Service Technician Name Role Phone Sharmin Farris NEGRO Primary Care Provider [phone] Allergies No known active allergies Medications atorvastatin (LIPITOR) 40 MG tablet Take 1 tablet by mouth 1 (one) time each day Active lamoTRIgine (LaMICtal) 200 MG tablet Take 1 tablet by mouth 2 (two) times a day Active tamsulosin (FLOMAX) 0.4 MG 24 hr capsule Take 1 capsule by mouth 1 (one) time each day Active acetaminophen (TYLENOL) 325 MG tablet TAKE 2 TABLETS BY MOUTH EVERY 4 HOURS 12/06/2020 Active amLODIPine (NORVASC) 10 MG tablet Take 10 mg by mouth 2 (two) times a day 01/06/2021 Active nystatin (MYCOSTATIN) 240065 UNIT/ML suspension SWISH 4 ML IN MOUTH FOR SEVERAL MINUTES AND THEN SWALLOW EVERY 6 HOURS 01/21/2023 Active Active Problems Problem Noted Date Diagnosed Date Chronic kidney disease 01/06/2021 Essential hypertension 01/06/2021 Seizure 01/06/2021 Family History Medical History Relation Comments Cancer Mother Relation Status Comments Father Unknown Mother Social History Tobacco Use Types Packs/Day Years Used Date Smoking Tobacco: Never Smokeless Tobacco: Never Tobacco Cessation:Counseling Given: Not Answered Alcohol Use Standard Drinks/Week Comments No 0 (1 standard drink = 0.6 oz pur e alcohol) Sex and Gender Information Value Date Recorded Sex Assigned at Not on file Legal Sex Male 4:48 PM EST Gender Identity Not on file Sexual Orientation Not on file Last Filed Vital Signs Vital Sign Reading Time Taken Comments Blood Pressure 132/78 03/09/2023 1:24 PM EDT Pulse 69 03/09/2023 1:24 PM EDT Temperature - - Respiratory Rate - - Oxygen Saturation 97% 03/09/2023 1:24 PM EDT Inhaled Oxygen Concentration - - Weight 76.7 kg (169 lb 3.2 oz) 09/01/2022 2:26 P M EST Height 172.7 cm (5' 8 ) 08/12/2021 2:41 PM EDT Body Mass Index 25.73 08/12/2021 2:41 PM EDT Plan of Treatment Health Maintenance Due Date Last Done Comments Pneumococcal Vaccine: 50+ Ye ars (1 of 2 - PCV) 1974 Colorectal Cancer Screening: Annual FOBT 2004 Colorectal Cancer Screening: Colonoscopy 2004 Colorectal Cancer Screening: Sigmoidoscopy 2004 Influenza Vaccine (Season Ended) 2025 Hepatitis B Vaccine Aged Out No longe r eligible based on patient's age to complete this topic Insurance [place] Medicare Care Teams Community Service Technician Relationship Specialty Start Date End Date Sharmin Farris FNP [address] [place], [place] PCP - General 11/03/20
--- OUTSIDE RECORDS SUMMARY | 2025-02-13 11:25 | XMS_ITS | Patient Health Record ---
Author Organization [facility] Address [address] [place] [id number] Care Team Providers Care Loan Review Manager Name Role Phone Kelvin Casillas Primary Care Provider [facility], Nursing Unavailable [phone] Allergies No Known Allergies Results Component Value Reference Range Notes CBC Reviewed date:08/17/2024 10:37:55 AM Interpretation:Abnormal Performing Lab: Notes/Report: ORDERS-IS EXTRA TUBE - 08/17/24--SHL Original Ordering Provider: KELVIN CASILLAS APRN [employer], a member of [address] [address] [employer] Operator - Marianna Ocampo MD WBC 7.3 4.8-10.8 x10-3/uL RBC 4.5 4.5-5.5 x10-6/uL HEMOGLOBIN 13.5 13.5-17.5 g/dL HEMATOCRIT 41.5 42-54 % MCV 91.6 79-98 fL MCH 29.8 27-32 pg MCHC 32.5 32-37 g/dL RDW 13.0 11-15 % PLT COUNT 236 130-400 x10-3/uL MEAN PLATELET VOLUME 11.1 7-11 fL NRBC % AUTO 0.0 <1 % NRBC # AUTO 0.00 <0.1 x10-3/uL COMPREHENSIVE METABOLIC PANE L Reviewed date:08/17/2024 10:37:00 AM Interpretation:Normal Performing Lab: Notes/Report: ORDERS-IS EXTRA TUBE - 08/17/24--SHL Original Ordering Provider: KELVIN CASILLAS APRN GLUCOSE 86 70-100 mg/dL Reference range applicable to fasting specimens only BUN 16 5-25 mg/dL CREAT 1.22 0.7-1.3 mg/dL GLOMERULAR FILTRATION RATE 65 >60 This eGFR result was calculated using the CKD-EPI 2020 Creatinine Equation SODIUM 140 135-145 mEq/L POTASSIUM 4.4 3.5-5.5 mmol/L CHLORIDE 107 96-110 mmol/L CO2 28 21-32 mmol/L ANION GAP 5 3-11 CALCIUM 9.9 8.5-10.5 mg/dL TOTAL PROTEIN 7.3 6.0-8.0 G/dL ALBUMIN 4.4 3.2-5.0 G/dL BILI,TOTAL 0.4 0.0-1.4 mg/dL SGOT 21 10-42 U/L SGPT 22 10-60 U/L ALK PHOS 123 42-121 U/L GLYCOHEMOGLOBIN PROFILE Reviewed date:08/20/2024 12:05:45 PM Interpretation:5.9 Performing Lab: Notes/Report: ORDERS-IS EXTRA TUBE - 08/17/24--SHL Original Ordering Provider: KELVIN CASILLAS APRN [employer], [place] [address] [employer] - Marianna Ocampo MD GLYCATED HEMOGLOBIN A1C 5.9 <6.5 % ESTIMATED AVERAGE GLUCOSE 123 HEPATITIS C VIRUS SCREEN Reviewed date:08/17/2024 10:39:13 AM Interpretation:Negative Performing Lab: Notes/Report: ORDERS-IS EXTRA TUBE - 08/17/24--SHL [employer] [address] [employer] Operator - Marianna Ocampo MD HEPATITIS C VIRUS SCREEN NEGATIVE NEGATIVE LIPID PROFILE Reviewed date:08/17/2024 10:36:30 AM Interpretation:Normal Performing Lab: Notes/Report: ORDERS-IS EXTRA TUBE - 08/17/24--SHL CHOLESTEROL 140 0-200 mg/dL TRIGLYCERIDES 39 0-150 mg/dL HDL CHOLESTEROL 93 >40 mg/dL LDL CALCULATED 40 0-100 mg/dL TC-HDLC RATIO 1.5 0-4.4 mg/dL INTACT PTH Reviewed date:08/17/2024 10:37:36 AM Interpretation:Normal Performing Lab: Notes/Report: ORDERS-IS EXTRA TUBE - 08/17/24--SHL INTACT PTH 66 18-88 pg/mL TREPONEMAL AB Reviewed date:08/17/2024 10:38:21 AM Interpretation:Negative Performing Lab: Notes/Report: ORDERS-IS EXTRA TUBE - 08/17/24--SHL TREPONEMAL AB NEGATIVE NEGATIVE URINALYSIS Reviewed date:08/17/2024 10:38:10 AM Interpretation:Negative Performing Lab: Notes/Report: GLUCOSE, (UA) NEGATIVE NEGATIVE mg/dL BILIRUBIN, URINE NEGATIVE NEGATIVE KETONE, URINE NEGATIVE NEGATIVE mg/dL SPECIFIC GRAVITY, URINE 1.013 1.003-1.030 BLOOD, URINE NEGATIVE NEGATIVE PH, URINE 5.0 5.0-8.0 PROTEIN, URINE NEGATIVE <= TRACE mg/dl UROBILINOGEN, URINE 0.2 0.2-1.0 E.U./dL NITRITE, URINE NEGATIVE NEGATIVE LEUKOCYTE ESTERASE, URINE NEGATIVE NEGATIVE MICROALB/CREAT RATIO, RANDOM Reviewed date:08/17/2024 10:37:44 AM Interpretation:Normal Performing Lab: Notes/Report: CREATININE, RANDOM URINE 101 MICROALBUMIN, RANDOM 15.4 0.0-29.0 mg/L MICROALB/CRE RATIO RANDOM 15.2 0.0-30.0 mg/G URINE CULTURE Reviewed date:08/17/2024 10:36:48 AM Interpretation:Negative Performing Lab: Notes/Report: Original Ordering Provider: KELVIN CASILLAS APRN [employer], [place] [address] [employer] Operator - Marianna Ocampo MD URINE CULTURE No growth VITAMIN D, 25-HYDROXY Reviewed date:08/17/2024 10:36:38 AM Interpretation:Low Performing Lab: Notes/Report: ORDERS-IS EXTRA TUBE - 08/17/24--SHL VITAMIN D, 25-HYDROXY 27 30-80 ng/mL COMPREHENSIVE METABOLIC PANE L Reviewed date:03/15/2024 10:45:03 AM Interpretation:improved creatinine Performing Lab: Notes/Report: Original Ordering Provider: KELVIN CASILLAS APRN BUN 14 5-25 mg/dL CREAT 1.37 0.7-1.3 mg/dL GLOMERULAR FILTRATION RATE 56 >60 This eGFR result was calculated using the CKD-EPI 2020 Creatinine Equation SODIUM 142 135-145 mEq/L POTASSIUM 4.3 3.5-5.5 mmol/L CHLORIDE 111 96-110 mmol/L CALCIUM 10.0 8.5-10.5 mg/dL ALBUMIN 4.6 3.2-5.0 G/dL SGPT 26 10-60 U/L GLUCOSE 84 70-100 mg/dL Reference range applicable to fasting specimens only CO2 28 21-32 mmol/L ANION GAP 3 3-11 TOTAL PROTEIN 7.5 6.0-8.0 G/dL BILI,TOTAL 0.6 0.0-1.4 mg/dL SGOT 20 10-42 U/L ALK PHOS 108 42-121 U/L GLYCOHEMOGLOBIN PROFILE Reviewed date:03/15/2024 10:45:40 AM Interpretation:Normal Performing Lab: Notes/Report: Original Ordering Provider: KELVIN CASILLAS APRN [employer], [place] [address] [employer] Operator - Marianna Ocampo MD GLYCATED HEMOGLOBIN A1C 5.5 <6.5 % ESTIMATED AVERAGE GLUCOSE 111 LIPID PROFILE Reviewed date:03/15/2024 10:45:25 AM Interpretation:Normal Performing Lab: Notes/Report: CHOLESTEROL 140 0-200 mg/dL HDL CHOLESTEROL 80 >40 mg/dL TC-HDLC RATIO 1.8 0-4.4 mg/dL TRIGLYCERIDES 48 0-150 mg/dL LDL CALCULATED 51 0-100 mg/dL MICROALB/CREAT RATIO, RANDOM Reviewed date:03/15/2024 10:45:33 AM Interpretation:Normal Performing Lab: Notes/Report: Original Ordering Provider: KELVIN CASILLAS APRN [employer], a member of [address] [address] [employer] Operator - Marianna Ocampo MD MICROALBUMIN, RANDOM 15.8 0.0-29.0 mg/L MICROALB/CRE RATIO RANDOM 12.6 0.0-30.0 mg/G CREATININE, RANDOM URINE 125 VITAMIN D, 25-HYDROXY Reviewed date:03/15/2024 10:45:18 AM Interpretation:Low Performing Lab: Notes/Report: [employer], [place] [address] [employer] Operator - Marianna Ocampo MD VITAMIN D, 25-HYDROXY 28 30-80 ng/mL CREATININE, URINE, RANDOM Reviewed date:02/08/2025 10:52:56 AM Interpretation: Performing Lab: Notes/Report: Creatinine, Urine 79.0 Reason For Referral Reason Needs annual eye check. Wears more than 1 yr old prescription glasses Diagnosis 1 Unspecified subjecti ve visual disturbances (H53.10) Referral Organization [facility] Referring Provider First Name Kelvin Referring Provider Last Name Tina Referring Provider Speciality Nurse Prac addy Referred Provider EyeVincenzo Referred Provider Specialty Ophthalmolog y General Notes Myra Kilgore 02:15:46 PM > foster faxed to [phone] Ligia 08/27/2024 11:05:59 AM > Vincenzo faxed back : 08/17/24 lmm for pt to sched; 08/24/24 lmm for pt to sched, second call, Myra Kilgore 10/11/2024 11:30:09 AM >gave pt number to call Vincenzo's office to schedule Referral Priority Routine Reason Due for annual denta l care Diagnosis 1 Encounter for genera l adult medical examination with abnormal findings (Z00.01) Referral Organization [facility] Referring Provider First Name Kelvin Referring Provider Last Name Tina Referring Provider Speciality Nurse Prac titioner Referred Provider Specialty Dental [facility] Referral Priority Routine Medications Medication SIG (Take, Route, Fr equency, Duration) Notes Start Date End Date Status lamoTRIgine 200 mg 1 tab(s) orally 2 ti mes a day for 90 days Active atorvastatin 40 mg 1 tab(s) orally once a day (at bedtime) for 90 days Active Flomax 0.4 mg 1 cap(s) orally once a day before bedtime Active amLODIPine 10 mg 1 tab(s) orally once a day for 90 days Active Immunizations Vaccine Route Administration Date Status Comme nts Influenza Unknown 08/29/2013 Administered Td Unknown 12/16/2006 Administered Influenza IM Intramuscular 07/22/2015 Administered Influenza IM Intramuscular 07/22/2016 Administered Influenza IM Intramuscular 09/16/2017 Administered Influenza IM Intramuscular 07/05/2018 Administered Tdap IM Intramuscular 01/03/2019 Administered [facility] [id number] Influenza IM Intramuscular 07/10/2020 Administered PCV 13 IM Intramuscular 10/08/2020 Administered [facility] [phone] [id number] Moderna Covid-19 Vaccine Administration - First Dose (Single Dose 100MCG/0.5ML 1ST) Unknown 02/03/2021 Administered given by [facility] Moderna Covid-19 Vaccine Administration - Second Dose (Single Dose 100 MCG/0.5ML 2ND) Unknown 03/10/2021 Administered given by [facility] Influenza IM Intramuscular 12/09/2021 Administered Moderna Covid-19 Booster Administration - Third Dose (Single Dose 50 mcg/0.25 mL IM Intramuscular 08/25/2021 Administered Influenza IM Intramuscular 08/16/2023 Administered Hepatitis B (20 or more) IM Intramuscular 08/16/2023 Administered Hepatitis B (20 or more) IM Intramuscular 08/16/2024 Administered [facility] [id number] Hepatitis A IM Intramuscular 08/16/2024 Administered [facility] [id number] Influenza IM Intramuscular 08/16/2024 Administered [facility] [id number] Social History Tobacco Use: Social History Observation Description Date Details (start date - stop date) Never Smoker NA - NA Sex Assigned At : Social History Observation Description Sex Assigned At Male Tobacco Use Assessment MU Question Answer Notes What is your current smoking status? nonsmoker Problems Problem Type SNOMED Code ICD Code Onset Dates Problem Status W/U Status Risk Notes Problem Primary hyperparathyroidis m (74328221) Primary hyperparathyroid ism (E21.0) Active confirmed Followed by KIRAN Problem Hypercalcemia (72844114) Hypercalcemia (E83.52) Active confirmed Problem Mental disorder (78693858) Mental disorder, not otherwise specified (F99) Active confirmed Declines referral or medications Problem Polyp of colon (01685676) Polyp of colon (K63.5) Active confirmed Colonoscopy in 2016: polyps--needs repeat Colonoscpy as he had Tubular Adenoma Problem Psoriasis vulgaris (911598265) Psoriasis vulgaris (L40.0) 2015 Active confirmed 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 Problem Seizure (34927560) Unspecified convulsions (R56.9) Active confirmed Followed by Kip Brizuela Ma Problem Lower urinary tract symptoms due to benign prostatic hypertrophy (10202003198469) Benign prostatic hyperplasia with lower urinary tract symptoms (N40.1) Active confirmed Problem Prediabetes (288662312) Prediabetes (R73.03) Active confirmed Problem Chronic kidney disease stage 3 (disorder) (237695420) Chronic kidney disease, stage 3 unspecified (N18.30) Active confirmed Problem Sheltered homelessness (481840397521194) Sheltered homelessness (Z59.01) Active confirmed Problem Seizure (finding) (86845041) Other seizures (G40.89) Inactive confirmed Dr. 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, with stage 1 through stage 4 chronic kidney disease, or unspecified chronic kidney disease (I13.10) Inactive confirmed Followed by RTANE Problem Chronic kidney disease stage 2 (505819138) Chronic kidney disease, stage 2 (mild) (N18.2) Inactive confirmed Problem Nocturia (361109965) Nocturia (R35.1) Inactive confirmed Problem Body mass index 25-29 - overweight (920769165) Body mass index (BMI) 26.0-26.9, adult (Z68.26) Inactive confirmed Problem Pure hypercholesterolem ia (927286253) Pure hypercholesterol emia, unspecified (E78.00) Inactive confirmed Vital Signs Temperature 97.0 degrees Fahrenheit 02/06/2025 Blood pressure diastolic 81 08/16/2024 Oximetry 98 08/16/2024 Height 68 in 02/06/2025 Blood pressure systolic 132 08/16/2024 Weight 165.6 lbs 08/16/2024 BMI 25.18 kg/m2 08/16/2024 Encounters Encounter Location Date Provider Diagnosis [address] [id number] 08/16/2024 Edjoann Casillas Prediabetes R73.03 ; Encounter for general adult medical examination with abnormal findings Z00.01 ; Unspecified convulsions R56.9 ; Benign prostatic hyperplasia with lower urinary tract symptoms N40.1 ; Hypercalcemia E83.52 ; Chronic kidney disease, stage 3 unspecified N18.30 ; Psoriasis vulgaris L40.0 ; Mental disorder, not otherwise specified F99 ; Polyp of colon K63.5 ; Encounter for immunization Z23 ; Unspecified subjective visual disturbances H53.10 and Encounter for screening for infectious and parasitic diseases, unspecified Z11.[address] [id number] 02/06/2025 Nursing [facility] Encounter for screening, unspecified Z13.[address] [id number] 03/07/2024 Eddieliza Casionan [address] [id number] 03/13/2024 Eddieliza Casionan Prediabetes R73.03 and Hypertensive heart and chronic kidney disease without heart failure, with stage 1 through stage 4 chronic kidney disease, or unspecified chronic kidney disease I13.[address] [id number] 07/02/2024 Eddieliza Casionan [address] [id number] 08/16/2024 Eddieliza Casionan [address] [id number] 01/10/2025 Eddieliza Casionan Assessments Encounter Date Diagnosis (ICD Code) Assessment Notes Treatment Notes Treatment Clinical Notes 02/06/2025 Encounter for screening, unspecified (ICD-10 - Z13.9) Lab work drawn as ordered, per protocol using aseptic technique. Client will be notified of all lab values within two weeks, Client agrees with plan, allowed to clarify questions about plan. 08/16/2024 Encounter for general adult medical examination with abnormal findings (ICD-10 - Z00.01) Annual PE performed.General recommendation for good health made: brush/floss your teeth 2x per day. Eat a healthy diet and obtain 30 minutes of aerobic exercise 5/7 days per week.. Maintain high in take of water and avoid soda and energy drinks. Get 8 hours of sleep every night. 08/16/2024 Prediabetes (ICD-10 - R73.03) Will check A1C Will refer for eye care 03/13/2024 Prediabetes (ICD-10 - R73.03) 08/16/2024 Unspecified convulsions (ICD-10 - R56.9) Followed by Kip Brizuela Ma. Denies recent episodes 03/13/2024 Hypertensive heart and chronic kidney disease without heart failure, with stage 1 through stage 4 chronic kidney disease, or unspecified chronic kidney disease (ICD-10 - I13.10) Followed by KIRAN 08/16/2024 Benign prostatic hyperplasia with lower urinary tract symptoms (ICD-10 - N40.1) stable. 08/16/2024 Hypercalcemia (ICD-10 - E83.52) will check PTH 08/16/2024 Chronic kidney disease, stage 3 unspecified (ICD-10 - N18.30) engaged with renal 08/16/2024 Psoriasis vulgaris (ICD-10 - L40.0) 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 denies recent flare up 08/16/2024 Mental disorder, not otherwise specified (ICD-10 - F99) Declines referral or medications PHQ-9 score less than 6. Appropriate behavior observed in clinic. No indication for referral at this time. 08/16/2024 Polyp of colon (ICD-10 - K63.5) Colonoscopy in 2016: polyps--needs repeat Colonoscpy as he had Tubular Adenoma Made aware of initial [facility] appt 08/21/24. 08/16/2024 Encounter for immunization (ICD-10 - Z23) VIS reviewed. Discussed risks and benefits of vaccine. Agrees to have vaccine. Vaccine given w/o adverse effect 08/16/2024 Unspecified subjective visual disturbances (ICD-10 - H53.10) agrees to see an eye doctor 08/16/2024 Encounter for screening for infectious and parasitic diseases, unspecified (ICD-10 - Z11.9) Covid screening is negative. Discussed in detail with patient how to practice social distancing by avoiding public spaces and crowds now, wearing a mask in public to keep nose and mouth covered, and washing hands frequently especially before eating and after using the bathroom. Return to clinic if you develop any symtpoms of concern to be rescreened or go to the emergency room if you are having concerning symptoms for COVID-19. 04/19/2024 Other 08/29/2024 Other Time spent in visit: minutes 08/16/2024 Other Plan Of Treatment Pending Test Test Name Order Date COLONOSCOPY AND BIOPSY 06/29/2022 CBC 01/03/2019 CBC 01/09/2020 COMPREHENSIVE METABOLIC PANEL 01/03/2019 COMPREHENSIVE METABOLIC PANEL 01/09/2020 GLYCOHEMOGLOBIN PROFILE 01/09/2020 GLYCOHEMOGLOBIN PROFILE 01/03/2019 LAMOTRIGINE LAMICTAL LEVEL 01/03/2019 QUANTIFERON TB GOLD 07/11/2019 THYROID PROFILE 01/03/2019 URINALYSIS 01/09/2020 MICROSCOPIC, URINE 07/10/2020 MICROALB/CREAT RATIO, RANDOM 01/09/2020 HEPATITIS A,B,C PROFILE 01/17/2023 GLYCOHEMOGLOBIN PROFILE 09/24/2022 Next Appt Details Provider Name:Nursing [facility], 02/18/2025 01:00:00 PM, [address], [place], [place], [id number], Insurance Providers Payer Name Payer Address Payer Phone Subscriber Number Group Number Insured Name Patient Relationship to Insured Coverage Start Date Coverage End Date MD Medicare Part A [employer] [address] [place] [address] [id number] Rafiq Salazar Self - patient is the insured MD Medicaid Standard [address] [place] [address] [id number] Rafiq Salazar Self - patient is the insured Medical (General) History Medical History History ICD Code seizure disorder elevated cholesterol non-smoker Elevated blood-pressure reading, without diagnosis of hypertension Surgical History Surgery Date(Month/Year) Hospitalization History Reason Date(Month/Year) Huong, seizures 11/2014 [facility] seizure 10/2014 seizures-last time more than 10 years
== END 2025-02-13 10:08 | disposition home or self-care (01) ==
LOC: HO.HKAS 09:57
PROVIDERS: PCP Nurse Practitioner Family; Visit Provider Internal Medicine Hypertension Specialist
DX: N18.30 Chronic kidney disease, stage 3 unspecified (principal); I10 Essential (primary) hypertension; E83.52 Hypercalcemia
CPT/HCPCS: 99214

== ENCOUNTER → 2025-02-13 09:57 | Outpatient (BNVA) | payer MEDICAID, SELFPAY | PROVIDERS: PCP Nurse Practitioner Family; Visit Provider Internal Medicine Hypertension Specialist | DX: I12.9 Hypertensive chronic kidney disease with stage 1 through stage 4 chronic kidney disease, or unspecified chronic kidney disease (principal); N18.30 Chronic kidney disease, stage 3 unspecified; E83.52 Hypercalcemia | CPT/HCPCS: 99212 ==